=== PATIENT | male | born 1970 | race Caucasian/White ===

== ENCOUNTER 2016-11-02 13:55 | Emergency (ER) | payer OTHER ==
[~2016-11-02] VITALS: Ht 167.6 cm; Wt 70.3 kg
[2016-11-02 14:20] LABS: BASOPHILS # (AUTO) 0.1 /CMM (0.0-0.2); BASOPHILS % (AUTO) 0.7 % (0.0-2.0); EOSINOPHILS # (AUTO) 0.1 /CMM (0.0-0.7); EOSINOPHILS % (AUTO) 0.9 % (0.0-6.0); HEMATOCRIT 48 % (39-51); HEMOGLOBIN 15.9 g/dL (13.5-17.5); LYMPHOCYTES # (AUTO) 1.7 /CMM (0.8-4.8); LYMPHOCYTES % (AUTO) 19.1 % (20.0-44.0); MEAN CORPUSCULAR HEMOGLOBIN 27 PG (26.0-33.0); MEAN CORPUSCULAR HGB CONC 33 g/dl (31.0-36.0); MEAN CORPUSCULAR VOLUME 81 fL (80-96); MONOCYTES # (AUTO) 0.3 /CMM (0.1-1.30); MONOCYTES % (AUTO) 3.3 % (2.0-12.0); NEUTROPHILS # (AUTO) 6.6 /CMM (1.8-8.9); PLATELET COUNT (AUTO) 374 /CMM (150-450); RDW COEFFICIENT OF VARIATION 13.9 (11.5-15.0); RED BLOOD CELL COUNT(AUTO) 5.95 MIL/uL (4.5-6.0); WHITE BLOOD COUNT (AUTO) 8.8 K/uL (4.3-11.0)
--- NOTE | 2016-11-02 14:23 | NUR ---
PT TO ED ROOM 08. [employer]/IN CUSTODY: TESTICULAR PAIN, SWELLIN, DYSURIA X 2 DAYS. IN CUSTODY. A/A/O. AMBULATORY W/ STEADY GAIT. SEEN BY ED PROVIDER. CONNECTED TO MONITOR. CHANGED TO GOWN.
[2016-11-02 14:29] LABS: CREATININE 0.9 mg/dL (0.6-1.3); POTASSIUM 4.6 mmol/L (3.5-5.1)
[2016-11-02] MEDS ORDERED: IBUPROFEN 400 MG TABLET ONE (14:30)
[2016-11-02] MEDS ORDERED: IBUPROFEN 600 MG TABLET PO ONE (14:30)
--- NOTE | 2016-11-02 14:34 | NUR ---
URINE SAMPLE COLELCTED AND SEND TO LAB
[2016-11-02 14:41] LABS: APPEARANCE,URINE Clear (CLEAR); BILIRUBIN,URINE Negative (NEGATIVE); BLOOD, URINE Negative Ery/uL (NEGATIVE); COLOR,URINE Yellow (YELLOW); KETONES,URINE Negative (NEGATIVE); LEUKOCYTE ESTERASE ,URINE Negative (NEGATIVE); NITRITE, URINE Negative (NEGATIVE); PROTEIN,URINE Negative (NEGATIVE); UGLUCOSE Negative (NEGATIVE); UROBILINOGEN,URINE 0.2 EU/dL (0.2)
--- NOTE | 2016-11-02 15:35 | NUR ---
Note undone in EDM - 11/02/16 at 1536 by RBATACLAN IV removed. Catheter intact and site benign. Pressure and 4x4 applied to site. No bleeding noted.Patient discharged to home in stable condition. Written and verbal after care instructions given. Patient verbalizes understanding of instruction.
--- NOTE | 2016-11-02 15:45 | NUR ---
Patient is resting comfortably in bed with eyes closed. Easily aroused. VSS
--- NOTE | 2016-11-02 15:57 | NUR ---
Patient discharged to [facility] in stable condition. Written and verbal after care instructions given. Patient verbalizes understanding of instruction.
[2016-11-02 16:20] VITALS: BP 138/87
== END 2016-11-02 16:22 ==
LOC: ER 14:02
DX: N45.1 Epididymitis (principal); F17.210 Nicotine dependence, cigarettes, uncomplicated; K59.00 Constipation, unspecified; N43.3 Hydrocele, unspecified
CPT/HCPCS: 36415; 76870-TC; 80048-TC; 81000-TC; 85025-TC; A4606; Z7610

== ENCOUNTER 2018-11-29 02:29 | Emergency (ER) | payer MEDICAID, OTHER ==
[~2018-11-29] VITALS: Ht 167.6 cm; Wt 79.4 kg
--- NOTE | 2018-11-29 02:46 | NUR ---
[employer] FROM [facility] C/O R LOWER ABDOMINAL PAIN. ALSO C/O BILATERAL TESTICLE SWELLING. +DYSURIA, +HEMATURIA. HX HERNIA
[2018-11-29] MEDS ORDERED: HYDROMORPHONE 1 MG/1 ML DISP.SYRIN ONE (02:56)
[2018-11-29] MEDS ORDERED: ONDANSETRON HCL/PF 4 MG/2 ML VIAL ONE (02:56)
[2018-11-29] MEDS ORDERED: IOHEXOL-300 100 ML VIAL IV ONE (03:08)
[2018-11-29] MEDS ORDERED: CT SWABBABLE VALVE TRANS SET 1 EA INFUS.SET MC ONE (03:08)
[2018-11-29] MEDS ORDERED: IV NS 0.9% 250 ML IV ONE (03:08)
[2018-11-29] MEDS: HYDROMORPHONE 1 MG/1 ML DISP.SYRIN IV ONE (03:13)
[2018-11-29] MEDS: IV NS 0.9% 1,000 ML BAG IV ONE (03:13)
[2018-11-29] MEDS: ONDANSETRON HCL/PF - ER 4 MG/2 ML VIAL IV ONE (03:13)
[2018-11-29 03:18] LABS: BASOPHILS % (AUTO) 0.4 % (0.0-2.0); EOSINOPHILS % (AUTO) 0.8 % (0.0-6.0); HEMATOCRIT 45 % (39-51); HEMOGLOBIN 14.6 g/dL (13.5-17.5); LYMPHOCYTES # (AUTO) 1.3 /CMM (0.8-4.8); LYMPHOCYTES % (AUTO) 17.4 % (20.0-44.0); MEAN CORPUSCULAR HGB CONC 33 g/dl (31.0-36.0); MEAN CORPUSCULAR VOLUME 83 fL (80-96); MONOCYTES # (AUTO) 0.4 /CMM (0.1-1.30); MONOCYTES % (AUTO) 4.6 % (2.0-12.0); NEUTROPHILS # (AUTO) 5.8 /CMM (1.8-8.9); NEUTROPHILS % (AUTO) 76.8 % (43.0-81.0); PLATELET COUNT (AUTO) 354 /CMM (150-450); RED BLOOD CELL COUNT(AUTO) 5.41 MIL/uL (4.5-6.0); WHITE BLOOD COUNT (AUTO) 7.6 K/uL (4.3-11.0)
[2018-11-29 03:25] LABS: CALCIUM, SERUM 9.1 mg/dL (8.5-10.1); CREATININE 0.9 mg/dL (0.6-1.3); POTASSIUM 4.2 mmol/L (3.5-5.1)
[2018-11-29 03:31] LABS: ALBUMIN 3.2 g/dL (3.4-5.0); BILIRUBIN,DIRECT 0.1 mg/dL (0.0-0.2); BILIRUBIN,TOTAL 0.3 mg/dL (0.2-1.0); TOTAL PROTEIN, SERUM 6.8 g/dL (6.4-8.2)
--- NOTE | 2018-11-29 03:40 | NUR ---
us tech at the bed side
--- NOTE | 2018-11-29 04:05 | NUR ---
pt was picked up for [place]. accompanied by [employer].
[2018-11-29] MEDS ORDERED: AZITHROMYCIN 250 MG TABLET ONE (04:37)
[2018-11-29] MEDS ORDERED: CEFTRIAXONE 500 MG VIAL ONE (04:37)
[2018-11-29] MEDS ORDERED: LIDOCAINE /MPF 1% VIAL 5 ML VIAL ONE (04:37)
[2018-11-29] MEDS: AZITHROMYCIN 250 MG TABLET PO ONE (04:41)
[2018-11-29] MEDS: CEFTRIAXONE 1 G VIAL IM ONE (04:41)
--- NOTE | 2018-11-29 05:31 | NUR ---
IV removed. Catheter intact and site benign. Pressure and 4x4 applied to site. No bleeding noted.Patient discharged in custody w/ [employer] in stable condition. Rx and Written and verbal after care instructions given. Patient verbalizes understanding of instruction. per MD, pt is clear to book.
[2018-11-29 05:33] VITALS: BP 111/63
== END 2018-11-29 05:33 ==
LOC: ER 02:30
DX: N45.1 Epididymitis (principal); R10.30 Lower abdominal pain, unspecified; F17.200 Nicotine dependence, unspecified, uncomplicated
CPT/HCPCS: 36415; 74177; 76870; 80048; 80076; 83690; 85025; 85730; 87491; 87591; 96372; 96374; 96375; 99284; 99406; J0696; J1170; J2405 ×2; J3490; J7030; J7050; Q9967

== ENCOUNTER 2024-03-09 11:29 | Emergency (ER) | payer MEDICAID, OTHER ==
[~2024-03-09] VITALS: Ht 162.6 cm; Wt 81.6 kg
[2024-03-09] MEDS ORDERED: ONDANSETRON 4 MG TAB.RAPDIS ONE (11:58)
[2024-03-09] MEDS: ONDANSETRON 4 MG TAB.RAPDIS SL ONE (12:00)
[2024-03-09 13:28] VITALS: BP 131/104; TEMP 97.8; O2SAT 100
== END 2024-03-09 13:28 ==
LOC: ER 12:14
DX: F19.10 Other psychoactive substance abuse, uncomplicated (principal); F17.200 Nicotine dependence, unspecified, uncomplicated; R11.0 Nausea
CPT/HCPCS: 99283; Q0162